=== PATIENT | male | born 1960 | race Caucasian/White ===

== ENCOUNTER 2021-10-10 14:07 | Inpatient (IN) | payer MEDICARE, OTHER ==
[~2021-10-10] VITALS: Ht 172.7 cm; Wt 235.0 kg
[2021-10-10 15:43] LABS: BASOPHILS % (AUTO) 0.3 % (0-1); EOSINOPHILS # (AUTO) 0.1 X10'3 (0-0.9); HEMATOCRIT 41.4 % (42.0-52.0); HEMOGLOBIN 14.5 g/dl (14.0-17.9); LYMPHOCYTES # (AUTO) 1.5 X10'3 (1.1-4.8); LYMPHOCYTES % (AUTO) 22.7 % (21-51); MEAN CORPUSCULAR HEMOGLOBIN 32.2 PG (27.0-31.0); MEAN PLATELET VOLUME 8.8 FL (7.4-10.4); MONOCYTES # (AUTO) 0.4 X10'3 (0-0.9); NEUTROPHILS # (AUTO) 4.6 X10'3 (1.8-7.7); PLATELET COUNT 218 X10'3 (140-440); RED BLOOD COUNT 4.49 X10'6 (4.70-6.10); RED CELL DISTRIBUTION WIDTH 12.8 % (11.5-14.5); WHITE BLOOD COUNT 6.7 X10'3 (4.5-11.0)
[2021-10-10 16:01] LABS: ALANINE AMINOTRANSFERASE 61 U/L (12-78); ALBUMIN 3.7 G/DL (3.4-5.0); ALBUMIN/GLOBULIN RATIO 0.9 (1.1-1.5); ALKALINE PHOSPHATASE 87 IU/L (46-116); ANION GAP 12 (8-16); ASPARTATE AMINO TRANSFERASE 61 U/L (10-37); BILIRUBIN,TOTAL 0.4 MG/DL (0.1-1.0); BLOOD UREA NITROGEN 8 MG/DL (7-18); BUN/CREATININE RATIO 9.9 (5.4-32.0); CALCIUM 9.3 MG/DL (8.5-10.1); CHLORIDE 105 MMOL/L (99-107); CREATININE 0.81 MG/DL (0.60-1.10); GLUCOSE 98 MG/DL (70-104); POTASSIUM 3.7 MMOL/L (3.5-5.1); SODIUM 141 MMOL/L (135-145); TOTAL CARBON DIOXIDE 23.6 MMOL/L (24-32); TOTAL PROTEIN 7.9 G/DL (6.4-8.2); eGFR > 90 ML/MIN
[2021-10-10] MEDS ORDERED: enoxaparin 100mg/ml syringe SUBCUT ONE (16:15)
[2021-10-10] MEDS ORDERED: aspirin 81mg tab.chew PO ONE (16:15)
[2021-10-10] MEDS ORDERED: nitroGLYCERIN 0.4mg SUBLingual tab SL PRN ×2 (16:15→17:20)
[2021-10-10] MEDS ORDERED: heparin 10,000 units/1 ML INJ IV ONE (16:25)
[2021-10-10] MEDS ORDERED: heparin 25,000 UNIT/250ml bag 250 ML IV SCH (16:25)
[2021-10-10] MEDS ORDERED: metoprolol tartrate 50mg tablet PO ONE (16:25)
[2021-10-10] MEDS ORDERED: NO HOME MEDS (16:37)
[2021-10-10] MEDS ORDERED: metoprolol tartrate 1mg/ml inj IV ONE (16:55)
[2021-10-10] MEDS ORDERED: magnesium hydroxide 30ml (MOM) UD suspension PO PRN (17:20)
[2021-10-10] MEDS ORDERED: HYDROcodone/acetaminophen 5mg/325mg tablet PO PRN (17:20)
[2021-10-10] MEDS ORDERED: potassium CL 10mEq/100ml bag 100 ML IV PRN (17:20)
[2021-10-10] MEDS ORDERED: HYDROcodone/acetaminophen 10/325mg tab PO PRN (17:20)
[2021-10-10] MEDS ORDERED: potassium Cl 20 mEq SR tablet PO PRN ×2 (17:20)
[2021-10-10] MEDS ORDERED: magnesium 2GM in 50ml NS 50 ML IV PRN (17:20)
[2021-10-10] MEDS ORDERED: ondansetron/PF 4mg/2ml inj IV PRN (17:20)
[2021-10-10] MEDS ORDERED: mag hydrox/Alum hydrox/simeth 30ml oral suspension PO PRN (17:20)
[2021-10-10] MEDS ORDERED: magnesium Cl slow-release 64mg tablet PO PRN (17:20)
[2021-10-10] MEDS ORDERED: acetaminophen 325mg tablet PO PRN ×2 (17:20)
[2021-10-10] MEDS ORDERED: magnesium 4gm in 100ml NS 100 ML IV PRN (17:20)
[2021-10-10] MEDS ORDERED: morphine 2 MG/ML inj. syringe IV PRN ×2 (17:20)
[2021-10-10] MEDS ORDERED: nitroGLYCERIN 0.4mg/hour patch TD ONE (17:30)
[2021-10-10 18:26] LABS: POTASSIUM 3.8 MMOL/L (3.5-5.1)
[2021-10-10] MEDS: K and/or MAG REPLACEMENT MC SCH (19:40)
[2021-10-10] MEDS: docusate sod 100mg capsule PO SCH (20:00)
--- NOTE | 2021-10-10 21:22 | NUR ---
PAGER ID: [phone] MESSAGE: Shaun T: ERNESTO 15: 62 6 hour troponin 5210, increased from 3 hr 4202, 0 hr 2815 Susana RIOS [id number]
[2021-10-10] MEDS: metoprolol tartrate 50mg tablet PO SCH (21:28)
--- NOTE | 2021-10-10 21:30 | NUR ---
No new orders at this time. Pt denies chest pain, n/v, SOB
[2021-10-10] MEDS ORDERED: atorvastatin 20mg tablet PO SCH (22:30)
--- NOTE | 2021-10-10 23:00 | NUR ---
New orders from Dr. Horowitz for Aggrastat per protocol. Atorvastatin 40 mg now and daily QHS. Pt to be NPO after midnight, and need signed consent for catheterization in the morning approx 0900 w/ posssible stent placement.
[2021-10-11] MEDS ORDERED: heparin 10,000 units/1 ML INJ IV SCH (00:20)
[2021-10-11] MEDS ORDERED: heparin 10,000 units/1 ML INJ IV PRN (00:30)
[2021-10-11] MEDS: tirofiban 5mg in NS 100mL 100 ML IV SCH ×3 (00:44→07:02)
[2021-10-11] MEDS: atorvastatin 20mg tablet PO SCH ×2 (00:58→19:58)
[2021-10-11 04:00] LABS: ANION GAP 10 (8-16); BLOOD UREA NITROGEN 14 MG/DL (7-18); BUN/CREATININE RATIO 17.5 (5.4-32.0); CALCIUM 8.4 MG/DL (8.5-10.1); CHLORIDE 105 MMOL/L (99-107); CHOL/HDL RATIO 4.3 (0.00-4.99); CHOLESTEROL 183 MG/DL (0-200); GLUCOSE 101 MG/DL (70-104); HDL CHOLESTEROL 43 MG/DL (35-60); LDL CHOLESTEROL 122 MG/DL (50-100); POTASSIUM 3.6 MMOL/L (3.5-5.1); SODIUM 141 MMOL/L (135-145); TOTAL CARBON DIOXIDE 26.2 MMOL/L (24-32); TRIGLYCERIDES 105 MG/DL (20-135); eGFR > 90 ML/MIN
[2021-10-11 05:25] VITALS: BP 144/82
[2021-10-11 05:50] LABS: CLARITY,URINE CLEAR (Clear); COLOR,URINE YELLOW (Yellow); GLUCOSE, URINE NEGATIVE (Neg); KETONES,URINE TRACE mg/dl (Neg); LEUKOCYTE ESTERASE ,URINE NEGATIVE (Neg); NITRITES, URINE NEGATIVE (Neg); OCCULT BLOOD,URINE TRACE-INTACT (Neg); PROTEIN,URINE NEGATIVE (Neg); UROBILINOGEN,URINE 0.2 E.U/dL (0.2-1.0)
[2021-10-11 05:58] LABS: UA COLLECTION TYPE NON-SPECIFIED
[2021-10-11 05:59] LABS: BACTERIA,URINE NONE SEEN /HPF (Neg); MUCUS STRANDS FEW /LPF (Neg); RBC,URINE 0-2 /HPF (0-2); SQUAMOUS EPITHELIAL CELL,UR FEW /LPF (FEW); WBC,URINE NONE SEEN /HPF (0-4)
[2021-10-11 06:00] VITALS: BP 114/82
[2021-10-11 06:03] LABS: URINE AMPHETAMINE SCREEN POSITIVE (Neg); URINE BARBITUATE SCREEN NEGATIVE (Neg); URINE BENZODIAZEPINES SCREEN NEGATIVE (Neg); URINE CANNABINOID SCREEN NEGATIVE (Neg); URINE COCAINE SCREEN NEGATIVE (Neg); URINE METHADONE SCREEN NEGATIVE (Neg); URINE OPIATE SCREEN NEGATIVE (Neg); URINE PHENCYCLIDINE SCREEN NEGATIVE (Neg)
[2021-10-11] MEDS: K and/or MAG REPLACEMENT MC SCH ×2 (08:00→19:56)
[2021-10-11] MEDS: nitroGLYCERIN 0.4mg/hour patch TD SCH (08:00)
[2021-10-11] MEDS: metoprolol tartrate 50mg tablet PO SCH ×2 (08:00→19:58)
[2021-10-11] MEDS: docusate sod 100mg capsule PO SCH ×2 (08:00→19:57)
[2021-10-11] MEDS: aspirin 81mg, enteric-coated 1 TAB TABLET.DR PO SCH (08:00)
[2021-10-11 08:31] LABS: BASOPHILS % (AUTO) 0.2 % (0-1); EOSINOPHILS # (AUTO) 0.3 X10'3 (0-0.9); EOSINOPHILS % (AUTO) 4.6 % (0-6); HEMATOCRIT 37.1 % (42.0-52.0); HEMOGLOBIN 12.9 g/dl (14.0-17.9); LYMPHOCYTES # (AUTO) 1.9 X10'3 (1.1-4.8); LYMPHOCYTES % (AUTO) 25.8 % (21-51); MEAN CORPUSCULAR HEMOGLOBIN 32.4 PG (27.0-31.0); MEAN CORPUSCULAR HGB CONC 34.9 g/dL (33.0-36.5); MEAN CORPUSCULAR VOLUME 92.8 FL (78-98); MEAN PLATELET VOLUME 9.4 FL (7.4-10.4); MONOCYTES # (AUTO) 0.6 X10'3 (0-0.9); MONOCYTES % (AUTO) 7.9 % (2-12); NEUTROPHILS # (AUTO) 4.4 X10'3 (1.8-7.7); NEUTROPHILS % (AUTO) 61.5 % (42-75); PLATELET COUNT 212 X10'3 (140-440); RED CELL DISTRIBUTION WIDTH 12.8 % (11.5-14.5); WHITE BLOOD COUNT 7.2 X10'3 (4.5-11.0)
[2021-10-11] MEDS ORDERED: verapamil 2.5 mg/ml inj IV ONE (09:42)
[2021-10-11] MEDS ORDERED: nitroGLYCERIN-Tridil 50MG/D5W 250 ML IV ONE (09:42)
[2021-10-11] MEDS ORDERED: heparin 1,000unit/ml 10ml vial 10 ML ONE (09:42)
[2021-10-11] MEDS ORDERED: fentaNYL/PF 50MCG/1 ML 2ML syringe ONE (09:42)
[2021-10-11] MEDS ORDERED: LIDOcaine 1% (10mg/ml)w/preservative injection 20ml MDV ONE (09:42)
[2021-10-11] MEDS ORDERED: midazolam 1 mg/ML 2ml injection ONE (09:42)
[2021-10-11] MEDS ORDERED: iohexol 350 MG/ML 50ML vial IV ONE ×2 (09:42→11:14)
[2021-10-11] MEDS ORDERED: iohexol 350MG/ML 100ml bottle IV ONE ×2 (09:43→10:46)
[2021-10-11] MEDS ORDERED: clopidogrel 300mg tablet ONE (11:15)
[2021-10-11] MEDS ORDERED: OXAZEpam 15mg capsule PO PRN (12:15)
[2021-10-11] MEDS ORDERED: HYDROcodone/acetaminophen 5mg/325mg tablet PO PRN (12:15)
[2021-10-11] MEDS ORDERED: proCHLORperazine 10 MG/2 ml inj IV PRN (12:15)
[2021-10-11] MEDS ORDERED: HYDROcodone/acetaminophen 10/325mg tab PO PRN (12:15)
[2021-10-11] MEDS ORDERED: ondansetron/PF 4mg/2ml inj IV PRN (12:15)
[2021-10-11] MEDS ORDERED: normal saline 1000ml 1,000 ML IV ONE (12:15)
[2021-10-11 13:41] LABS: BASOPHILS % (AUTO) 0.2 % (0-1); EOSINOPHILS # (AUTO) 0.2 X10'3 (0-0.9); HEMATOCRIT 39.1 % (42.0-52.0); HEMOGLOBIN 13.4 g/dl (14.0-17.9); LYMPHOCYTES # (AUTO) 1.7 X10'3 (1.1-4.8); MEAN CORPUSCULAR HEMOGLOBIN 31.6 PG (27.0-31.0); MEAN CORPUSCULAR HGB CONC 34.2 g/dL (33.0-36.5); MEAN CORPUSCULAR VOLUME 92.6 FL (78-98); MEAN PLATELET VOLUME 9.1 FL (7.4-10.4); MONOCYTES # (AUTO) 0.5 X10'3 (0-0.9); NEUTROPHILS # (AUTO) 5.4 X10'3 (1.8-7.7); NEUTROPHILS % (AUTO) 68.8 % (42-75); PLATELET COUNT 237 X10'3 (140-440); RED BLOOD COUNT 4.23 X10'6 (4.70-6.10); RED CELL DISTRIBUTION WIDTH 12.9 % (11.5-14.5); WHITE BLOOD COUNT 7.9 X10'3 (4.5-11.0)
[2021-10-11 13:43] LABS: ALANINE AMINOTRANSFERASE 63 U/L (12-78); ALBUMIN 3.3 G/DL (3.4-5.0); ALBUMIN/GLOBULIN RATIO 0.9 (1.1-1.5); ALKALINE PHOSPHATASE 80 IU/L (46-116); ANION GAP 10 (8-16); ASPARTATE AMINO TRANSFERASE 59 U/L (10-37); BILIRUBIN,TOTAL 0.8 MG/DL (0.1-1.0); BLOOD UREA NITROGEN 13 MG/DL (7-18); BUN/CREATININE RATIO 15.5 (5.4-32.0); CALCIUM 8.7 MG/DL (8.5-10.1); CHLORIDE 100 MMOL/L (99-107); CREATININE 0.84 MG/DL (0.60-1.10); GLUCOSE 113 MG/DL (70-104); SODIUM 136 MMOL/L (135-145); TOTAL CARBON DIOXIDE 25.9 MMOL/L (24-32); TOTAL PROTEIN 7.1 G/DL (6.4-8.2); eGFR > 90 ML/MIN
[2021-10-11 15:00] VITALS: BP 172/91
[2021-10-11 18:00] VITALS: BP 160/93
--- NOTE | 2021-10-11 18:48 | NUR ---
Problems reprioritized. Patient report given, questions answered & plan of care reviewed with Marii RIOS.
[2021-10-11 22:00] VITALS: BP 148/78
[2021-10-12 02:00] VITALS: BP 154/71
[2021-10-12 07:02] LABS: BASOPHILS % (AUTO) 0.2 % (0-1); EOSINOPHILS # (AUTO) 0.2 X10'3 (0-0.9); EOSINOPHILS % (AUTO) 3.5 % (0-6); HEMATOCRIT 36.4 % (42.0-52.0); HEMOGLOBIN 12.7 g/dl (14.0-17.9); LYMPHOCYTES # (AUTO) 1.9 X10'3 (1.1-4.8); LYMPHOCYTES % (AUTO) 30.6 % (21-51); MEAN CORPUSCULAR HEMOGLOBIN 32.2 PG (27.0-31.0); MEAN CORPUSCULAR HGB CONC 34.9 g/dL (33.0-36.5); MEAN CORPUSCULAR VOLUME 92.1 FL (78-98); MEAN PLATELET VOLUME 9.1 FL (7.4-10.4); MONOCYTES # (AUTO) 0.6 X10'3 (0-0.9); MONOCYTES % (AUTO) 9.3 % (2-12); NEUTROPHILS # (AUTO) 3.5 X10'3 (1.8-7.7); NEUTROPHILS % (AUTO) 56.4 % (42-75); PLATELET COUNT 195 X10'3 (140-440); RED BLOOD COUNT 3.96 X10'6 (4.70-6.10); RED CELL DISTRIBUTION WIDTH 12.7 % (11.5-14.5); WHITE BLOOD COUNT 6.1 X10'3 (4.5-11.0)
[2021-10-12 07:07] LABS: ANION GAP 10 (8-16); BLOOD UREA NITROGEN 15 MG/DL (7-18); CALCIUM 8.4 MG/DL (8.5-10.1); CHLORIDE 105 MMOL/L (99-107); CREATININE 0.88 MG/DL (0.60-1.10); GLUCOSE 105 MG/DL (70-104); MAGNESIUM 2.1 MG/DL (1.5-2.4); POTASSIUM 3.5 MMOL/L (3.5-5.1); SODIUM 139 MMOL/L (135-145); TOTAL CARBON DIOXIDE 24.4 MMOL/L (24-32); eGFR 89 ML/MIN
[2021-10-12] MEDS ORDERED: clopidogrel 75mg tablet PO SCH (08:00)
[2021-10-12] MEDS: aspirin 81mg, enteric-coated 1 TAB TABLET.DR PO SCH (08:12)
[2021-10-12] MEDS: docusate sod 100mg capsule PO SCH (08:12)
[2021-10-12 08:13] VITALS: BP_SYST 148
[2021-10-12] MEDS: nitroGLYCERIN 0.4mg/hour patch TD SCH (08:13)
[2021-10-12] MEDS: metoprolol tartrate 50mg tablet PO SCH (08:13)
[2021-10-12] MEDS ORDERED: LISI20TA28 PO ×3 (09:56→11:32)
[2021-10-12] MEDS ORDERED: ASPI-1071 PO ×3 (09:56→11:32)
[2021-10-12] MEDS ORDERED: CLOP75TA34 PO ×3 (09:56→11:32)
[2021-10-12] MEDS ORDERED: ATOR20TA66 PO ×3 (09:56→11:32)
[2021-10-12] MEDS ORDERED: NITR0.4T51 SL (09:56)
[2021-10-12] MEDS ORDERED: METO50TA16 PO ×3 (09:56→11:32)
== END 2021-10-12 11:53 | disposition home or self-care (01) | DRG 247 ==
LOC: ER 14:08 → ED HOLD 17:21 → EDBEDREQ 10-11 03:30 → PCU 3S 10-11 05:00
PROVIDERS: ADMIT Internal Medicine; ATTEND Internal Medicine
PROC: 4A023N7 Measurement of Cardiac Sampling and Pressure, Left Heart, Percutaneous Approach (ICD-10-PCS; principal; 2021-10-11)
PROC: 027034Z Dilation of Coronary Artery, One Artery with Drug-eluting Intraluminal Device, Percutaneous Approach (ICD-10-PCS; 2021-10-11)
PROC: B2111ZZ Fluoroscopy of Multiple Coronary Arteries using Low Osmolar Contrast (ICD-10-PCS; 2021-10-11)
PROC: B2151ZZ Fluoroscopy of Left Heart using Low Osmolar Contrast (ICD-10-PCS; 2021-10-11)
DX: I21.4 Non-ST elevation (NSTEMI) myocardial infarction (principal); Z68.45 Body mass index [BMI] 70 or greater, adult; I25.10 Atherosclerotic heart disease of native coronary artery without angina pectoris; E66.9 Obesity, unspecified; E78.5 Hyperlipidemia, unspecified; F12.90 Cannabis use, unspecified, uncomplicated; Z20.822 Contact with and (suspected) exposure to COVID-19; F15.90 Other stimulant use, unspecified, uncomplicated; F17.210 Nicotine dependence, cigarettes, uncomplicated; I10 Essential (primary) hypertension; J44.9 Chronic obstructive pulmonary disease, unspecified; Z80.8 Family history of malignant neoplasm of other organs or systems; Z82.49 Family history of ischemic heart disease and other diseases of the circulatory system; Z79.02 Long term (current) use of antithrombotics/antiplatelets; Z79.82 Long term (current) use of aspirin; Z71.51 Drug abuse counseling and surveillance of drug abuser; Z71.6 Tobacco abuse counseling
CPT/HCPCS: 93306; 93458; 96365; 96375; 96376; 99291; C9600; 36415; 71045; 76937; 80048; 80053; 80061; 80305; 81001; 83036; 83735; 83880; 84132; 84484; 85025; 85347; 85730; 87081; 87635; 93005; 99152; 99153; A4620; A5120; A6258; C1725; C1751; C1769; C1874; C1894; G0378; J1644; J2250; J3010; J3246; J3490; J7030; Q9967